=== PATIENT | male | born 1975 | race Caucasian/White ===

== ENCOUNTER 2021-01-23 10:28 | Emergency (ER) | payer MEDICAID, SELFPAY ==
[2021-01-23 10:29] VITALS: BP 128/81; PULSE 94; RESP 16; TEMP 37.3; O2SAT 95; BMI 22.4
--- NOTE | 2021-01-23 10:41 | XR_ITS ---
WS: [id number] Cervical spine, 3 views, 01/23/2021 Clinical Data: fall Comparison: None. Findings: No compression fractures are seen. No subluxation is present. There is disc space narrowing at C5-C6. There is no prevertebral soft tissue swelling. The odontoid is unremarkable. The soft tiss ues of the neck and the lung apices are normal. The patient has had surgery of the mental symphysis o f the mandible. XR/XR cervical spine 3V* [id number] Impression: Minimal degenerative disc disease at C5-C6.
--- NOTE | 2021-01-23 10:42 | CT_ITS ---
WS: [id number] CT HEAD TECHNIQUE: Noncontrast CT of the head obtained from the skullbase to the vertex. CLINICAL INFORMATION: fall/closed head injury COMPARISON: None. DLP: 952.[address] scans at [facility] use at least one of these dose optimization techniques: automat ed exposure control; mA and/or kV adjustment per patient size (includes targeted exams where dose is matched to clinical indication); or iterative reconstruction. FINDINGS: No evidence of intracranial hemorrhage or mass effect. Ventricular system and basal cisterns are garcia nt.No extra-axial fluid collections. No evidence of mass or mass effect. Normal leary-white differenti ation. Paranasal sinuses and mastoid air cells are well aerated. .Normal visualized soft tissues. CT/CT head wo con* [id number] IMPRESSION: 1. No evidence of intracranial hemorrhage or mass effect. 2. Normal leary-white differentiation. 3. No acute intracranial findings.
--- NOTE | 2021-01-23 11:40 | ED_ITS ---
HPI - Head Injury General: Chief complaint: Head Injury Stated complaint: HEAD INJURY Time Seen by Provider: 01/23/21 10:31 History of Present Illness: HPI Narrative: 45-year-old male who is currently a resident of one [facility] the [facility]. Evidently this morning he fell and hit his head got sleepy and drowsy fell again has a brief loss of consciousness there is no evidence of seizure activity he had no postictal phase he is awake and alert answers questions remembers the events fairly well. No history of seizures. He initially had slipped and fallen. MD Complaint: head injury Onset (ago): hour(s) Arrival Conditions: C-spine immobilization present Mechanism of Injury: fall Place: other ([facility]) Loss of Consciousness: yes Location of injury: occipital Severity: mild Quality: throbbing Radiation: none Other Injuries: none Associated symptoms: Deny amnesia, confusion, nausea, neck pain, numbness, syncope, tingling, vertigo, visual changes, vomiting or weakness Review of Systems Const: Denies: fever(s), chills, body aches, change in appetite, fatigue or malaise ENMT: Denies: throat pain, ear or mastoid pain, nasal discharge or nasal congestion Card: Denies: syncope Resp: Denies: dyspnea, productive cough or non-productive cough GI: Denies: nausea or vomiting : Denies: flank pain, dysuria, urinary frequency or urinary urgency Musc: Denies: neck pain Skin/Breast: Denies: rash or pruritus Neuro: Denies: vertigo or confusion Physical Exam Const: COMMON NORMALS: no acute distress GENERAL APPEARANCE: cooperative and comfortable ORIENTATION/CONSCIOUSNESS: Yes awake, Yes oriented to person, Yes oriented to place and Yes oriented to time HENMT: COMMON NORMALS: normocephalic, hearing grossly normal bilaterally, external ears normal, EAC's normal, TM's normal bilaterally, Normal nasal mucous membranes and turbinates present, moist oral mucous membranes and oropharynx normal HEAD & SCALP: normocephalic NOSE: Normal nasal mucous membranes and turbinates present EXTERNAL EAR: Yes external ears normal EXTERNAL AUDITORY CANAL: EAC's normal TYMPANIC MEMBRANE: TM's normal bilaterally Eye: COMMON NORMALS: Equal, round and reactive pupils present, EOMs intact bilaterally, conjunctivae normal and no scleral icterus CONJUNCTIVA: Yes conjunctivae normal PUPIL: Yes Equal, round and reactive pupils present Neck/C-Spine: COMMON NORMALS: no lymphadenopathy, supple and no JVD Resp: COMMON NORMALS: normal respiratory effort, No retractions, No use of accessory muscles and clear to auscultation bilaterally AUSCULTATION: clear to auscultation bilaterally Cardio: COMMON NORMALS: no JVD, regular rate, regular rhythm and No murmurs present (Cardio) RATE: regular rate RHYTHM: regular rhythm GI: COMMON NORMALS: Soft to palpation and No hepatosplenomegaly present AUSCULTATION: Yes normoactive bowel sounds PALPATION: Yes Soft to palpation, No Tenderness to palpation present (GI), No Guarding due to palpation present (GI) and Yes No hepatosplenomegaly present Extremity: COMMON NORMALS: normal to inspection, capillary refill normal, no clubbing, cyanosis or edema, no calf tenderness and no pedal edema Neuro: SENSORIUM/ORIENTATION: Yes oriented to person, Yes oriented to place and Yes oriented to time Skin: COMMON NORMALS: no rashes or lesions noted GENERAL SKIN EXAM: no rashes or lesions noted Course Vital Signs: Vital signs: Vital Signs Temperature 99.1 F 01/23/21 10:29 Pulse Rate 81 01/23/21 12:05 Respiratory Rate 16 01/23/21 12:05 Blood Pressure 125/82 01/23/21 12:05 Pulse Oximetry 99 01/23/21 12:05 MDM - Head Injury MDM Narrative: Medical decision making narrative: CT of head negative neurologic exam normal and will go ahead and discharge home he does have a small abrasion a little bruising in the left frontal area no significant swelling repeat neurologic exam intact prior to discharge follow-up as needed Discharge Plan Discharge Patient Disposition: Home Clinical Impression: Concussion with loss of consciousness Condition: Stable Discharge Orders: Discharge ED (Routine); Ordered 01/23/21 Ordered By: Pankaj Booth Discharge Diet: Usual diet Discharge Activity: Limit activity as instructed Patient Instructions: Opioid Safety Activity Restrictions/Additional Instructions: Tylenol for headaches. No exertional activities. Follow-up with your primary care doctor in 1 to 2 weeks anticipate continued headaches during that time if they are markedly worsened and there is any loss consciousness return for reevaluation Coding Level of Care Code ED Inspector Floor Sub Assembly for Gutierrez Fwd Exam Comprehensive
[2021-01-23] MEDS: ibuprofen 200 mg Tablet 400 MG PO (12:01)
[2021-01-23 12:05] VITALS: BP 125/82; PULSE 81; RESP 16; O2SAT 99
== END 2021-01-23 12:07 | disposition home or self-care (01) ==
PROVIDERS: Emergency Provider Family Medicine
DX: S06.0X9A Concussion with loss of consciousness of unspecified duration, initial encounter (principal); W19.XXXA Unspecified fall, initial encounter; Y92.143 Cell of prison as the place of occurrence of the external cause
CPT/HCPCS: 70450; 72040; 99283